=== PATIENT | male | born 1955 | race Caucasian/White ===

== ENCOUNTER 2019-12-01 12:10 | Emergency (ER) | payer OTHER ==
[~2019-12-01] VITALS: Ht 167.6 cm; Wt 76.2 kg
[~2019-12-01 12:10] MED LIST: CATAFLAM50 MG PO; METFORMIN HCL500 MG; ORPH100T PO
[2019-12-01] MEDS ORDERED: GLIMEPIRIDE4 M1 PO (12:17)
[2019-12-01] MEDS ORDERED: APLENZIN174 MG PO (12:17)
[2019-12-01] MEDS ORDERED: SYMBICORT 16010.2 GM (12:17)
== END 2019-12-01 15:00 | disposition home or self-care (01) ==
LOC: ER 12:10
DX: B33.8 Other specified viral diseases (principal); B96.0 Mycoplasma pneumoniae [M. pneumoniae] as the cause of diseases classified elsewhere

== ENCOUNTER → 2020-07-17 | Emergency (ER) | payer OTHER ==
[~2020-07-17] VITALS: Ht 167.6 cm; Wt 81.2 kg
[~2020-07-17] MED LIST changes: +APLENZIN174 MG PO; +ATORVASTATIN CA20 MG; +CUTIVATE30 GM; +GLIMEPIRIDE4 M1 PO; +JANUMET XR 50-1 EAC1; +NORFLEX100MG PO; +PROAIR RESPICL90 MCG; +RISPERDAL1 MG; +SYMBICORT 16010.2 GM; +SYMBICORT 16010.2 GM IH; +TESSALON PERLE100 M1 PO; +ZITHROMAX500 MG PO; +ZYRTEC10 M3 PO
== END | disposition home or self-care (01) ==
LOC: ER 09:50
DX: R06.02 Shortness of breath (principal); Z03.818 Encounter for observation for suspected exposure to other biological agents ruled out

== ENCOUNTER 2020-09-19 11:51 | Emergency (ER) | payer OTHER ==
[~2020-09-19] VITALS: Ht 195.6 cm; Wt 83.0 kg
[2020-09-19] MEDS ORDERED: NORFLEX100MG PO (15:05)
[2020-09-19] MEDS ORDERED: KETO10TA2 PO (15:05)
== END 2020-09-19 15:09 | disposition home or self-care (01) ==
LOC: ER 11:51
DX: M54.5 Low back pain (principal)

== ENCOUNTER 2021-12-13 11:40 | Emergency (ER) | payer OTHER ==
[~2021-12-13] VITALS: Ht 167.6 cm; Wt 76.7 kg
[~2021-12-13 11:40] MED LIST changes: +KETO10TA2 PO
== END 2021-12-13 20:57 | disposition home or self-care (01) ==
LOC: ER 11:40
DX: E86.0 Dehydration (principal); B34.9 Viral infection, unspecified; R06.02 Shortness of breath; E11.65 Type 2 diabetes mellitus with hyperglycemia; Z20.822 Contact with and (suspected) exposure to COVID-19; I10 Essential (primary) hypertension

== ENCOUNTER 2022-03-04 11:39 | Emergency (ER) | payer OTHER ==
[~2022-03-04] VITALS: Ht 167.6 cm; Wt 80.7 kg
[2022-03-04] MEDS ORDERED: ZITHROMAX500 MG PO (16:38)
== END 2022-03-04 17:09 | disposition home or self-care (01) ==
LOC: ER 11:39
DX: A49.3 Mycoplasma infection, unspecified site (principal); Z20.822 Contact with and (suspected) exposure to COVID-19

== ENCOUNTER 2024-08-31 10:51 | Emergency (ER) | payer OTHER ==
[~2024-08-31] VITALS: Ht 167.6 cm; Wt 68.0 kg
[2024-08-31] MEDS ORDERED: GLIMEPIRIDE2 M1 PO (11:22)
[2024-08-31 11:23] VITALS: BP 108/66; O2SAT 100
[2024-08-31] MEDS ORDERED: TRAZODONE HCL150 MG PO (11:23)
[2024-08-31] MEDS ORDERED: ZESTRIL2.5 MG PO (11:23)
[2024-08-31] MEDS ORDERED: ATORVASTATIN CA40 MG PO (11:23)
[2024-08-31] MEDS ORDERED: CEFTRIAXONE SODIUM 1,000 MG VIAL IM STA (11:47)
== END 2024-08-31 12:20 | disposition home or self-care (01) ==
LOC: ER 10:53
DX: T14.8XXA Other injury of unspecified body region, initial encounter (principal); L03.90 Cellulitis, unspecified; W57.XXXA Bitten or stung by nonvenomous insect and other nonvenomous arthropods, initial encounter
CPT/HCPCS: 96372; 99282; J0696